=== PATIENT | female | born 1965 | race Two or more races ===

== ENCOUNTER 2021-04-08 14:48 | Emergency (ER) | payer MEDICAID, OTHER ==
[2021-04-08] MEDS ORDERED: Erythromycin Base 0.5% Ophth Oint 1 GM Tube EYEBOTH ONE (15:20)
--- NOTE | 2021-04-08 15:20 | EDM.PDOC ---
ED HPI GENERAL MEDICAL PROBLEM - General Chief Complaint: Eye Problems Stated Complaint: IRRITATED EYES Time Seen by Provider: 04/08/21 14:51 Source of Information: Reports: Patient History Limitations: Reports: No Limitations - History of Present Illness INITIAL COMMENTS - FREE TEXT/NARRATIVE: HISTORY AND PHYSICAL: History of present illness: Patient is a 55-year-old female who presents to the emergency room with complaints of bilateral eye irritation, dryness and discharge over the past several days. She states she did see her primary care provider who put her on amoxicillin and Bactrim DS for 3 days. Her symptoms have not improved. She was not given any eyedrops or ointments. She does wear glasses, no contact lenses. Patient denies any fever, chills, headache, change in vision, syncope or near syncope. Denies any chest pain, back pain, shortness of breath or cough. Denies any GI or symptoms. Review of systems: As per history of present illness and below otherwise all systems reviewed and negative. Past medical history: As per history of present illness and as reviewed below otherwise noncontributory. Surgical history: As per history of present illness and as reviewed below otherwise noncontributory. Social history: See social history for further information Family history: As per history of present illness and as reviewed below otherwise noncontributory. Physical exam: General: Well developed and well nourished. Alert and orientated x 3. Nontoxic in appearance and in no acute distress. Vital signs are stable and have been reviewed by me. Nursing notes were reviewed. HEENT: Atraumatic, normocephalic, pupils equal and reactive bilaterally, negative for conjunctival pallor or scleral icterus, scleral injection bilaterally, she has no tenderness or evidence of cellulitis periorbitally. Mucous membranes moist, TMs normal bilaterally, throat clear, neck supple, nontender, trachea midline. No drooling or trismus noted. No meningeal signs. No hot potato voice noted. Lungs: Clear to auscultation bilaterally. No wheezes, rales, or rhonchi. Chest nontender. Normal work of breathing, no accessory muscles used. Heart: S1S2, regular rate and rhythm without overt murmur, gallops, or rubs. No JVD. No peripheral edema Abdomen: Soft, nondistended, nontender. Normoactive bowel sounds. Negative for masses or costovertebral tenderness. Skin: Intact, warm, dry. No lesions or rashes noted. Hematologic: No petechiae or purpra. Mucosa appropriate color and normal nail bed color and refill. Extremities: Atraumatic, moves all extremities per self without difficulty or deficits, negative for cords or calf pain. Neurovascular unremarkable. Neuro: Awake, alert, oriented. Cranial nerves II through XII unremarkable. Cerebellum unremarkable. Motor and sensory unremarkable throughout. Exam nonfocal. Psychiatric: Mood and affect are appropriate. Normal thought process. Answering questions appropriately. Notes: *This patient was seen and evaluated during the 2019 SARS-CoV-2 novel coronavirus pandemic period. Community viral transmission is ongoing at time of this encounter and the emergency department is operating under pandemic response procedures. Eye exam shows irritation to bilateral eyes, no foreign body or abrasion noted. Visual acuity is noted here. Erythromycin ointment applied here. I have talked with the patient about today's findings, in addition to providing specific details for plan of care. She will follow up with ophthalmology. Reassessment at the time of disposition demonstrates that the patient is in no acute distress. The patient is stable for discharge, counseling was provided and we discussed in great detail signs and symptoms that would prompt them to return to the Emergency Department. Medication, follow up and supportive care measures were reviewed and discussed. Voices understanding and is agreeable to plan of care. Denies any further questions or concerns at this time. Diagnostics: Eye exam, visual acuity Therapeutics: Erythromycin ointment Prescription: Erythromycin ointment Impression: Conjunctivitis, bilateral Plan: 1. You were evaluated today on an emergent basis. Apply the ointment every 4 hours while awake in both eyes over the next week 2. You can alternate Tylenol and ibuprofen as needed for pain and fever management. 3. We encourage you to follow up with your Printing Plate [employer]ter in the next few days for re-evaluation and further care/management. 4. If your symptoms should worsen, new symptoms develop or any of the signs and symptoms we discussed should arise please return to the emergency room or call 911 (if needed). Definitive disposition and diagnosis as appropriate pending reevaluation and review of above. Treatments WO[employer]: Reports: Other (see below) Other Treatments WO[employer] FRAME [employer]DER: advil and benadryl as well and abx bilateral eyes Pain Score (Numeric/FACES): 2 - Related Data Allergies Allergy/AdvReac Type Severity Reaction Status Date / Time acetaminophen Allergy Hives Verified 04/08/21 15:05 [From Tylenol-Codeine #3] codeine Allergy Hives Verified 04/08/21 15:05 [From Tylenol-Codeine #3] Home Meds: Home Meds Phenazopyridine HCl [Pyridium] 200 mg PO TID #9 tablet 10/06/18 [Rx] Sulfamethoxazole/Trimethoprim [Bactrim Ds Tablet] 1 each PO BID #20 tablet 10/06/18 [Rx] Amoxicillin 04/08/21 [History] Erythromycin Base [Erythromycin 0.5% Ophth Oint] 1 applic OP Q4H 7 Days #1 tube 04/08/21 [Rx] Past Medical History - Past Health History Medical/Surgical History: Denies Medical/Surgical History HEENT History: Reports: Other (See Below) Other HEENT History: patient is having bilateral swelling and redness to her eyes. States she has been taking abx since thursday but her symptoms have been getting worse. Denies changes in vision. C/o burning and itching to bilateral eyes. Dermatologic History: Reports: Other (See Below) Other Dermatologic History: redness and swelling to bilateral eyelids - Infectious Disease History Infectious Disease History: Reports: Chicken Pox, Measles, Mumps - Past Surgical History HEENT Surgical History: Reports: None Dermatological Surgical History: Reports: None Social & Family History - Family History Family Medical History: No Pertinent Family History - Tobacco Use Tobacco Use Status *Q: Never Tobacco User Second Hand Smoke Exposure: No - Caffeine Use Caffeine Use: Reports: None - Recreational Drug Use Recreational Drug Use: No ED ROS GENERAL - Review of Systems Review Of Systems: Comprehensive ROS is negative, except as noted in HPI. ED EXAM GENERAL W FULL EYE - Physical Exam Exam: See Below (See dictation) Course - Vital Signs Last Recorded V/S: Last Vital Signs Temp 98.1 F 04/08/21 16:01 Pulse 82 04/08/21 16:01 Resp 18 04/08/21 16:01 BP 121/72 04/08/21 16:01 Pulse Ox 97 04/08/21 16:01 - Orders/Labs/Meds Meds: Medications Discontinued Medications Generic Name Dose Route Start Last Admin Trade Name Freq PRN Reason Stop Dose Admin Erythromycin 1 gm 04/08/21 15:20 04/08/21 15:23 Erythromycin Base 0.5% Ophth Oint 1 Gm Tube EYEBOTH 04/08/21 15:21 1 gm ONETIME ONE Administration Departure - Departure Time of Disposition: 15:43 Disposition: Home, Self-Care 01 Clinical Impression: Conjunctivitis Qualifiers: Conjunctivitis type: acute Acute conjunctivitis type: unspecified Laterality: bilateral Qualified Code(s): H10.33 - Unspecified acute conjunctivitis, bilateral - Discharge Information Prescriptions: Erythromycin Base [Erythromycin 0.5% Ophth Oint] 1 applic OP Q4H 7 Days #1 tube Instructions: Bacterial Conjunctivitis, Adult, [id number] Referrals: PCP,None [Primary Care Provider] - Forms: ED Department Discharge Additional Instructions: The following information is given to patients seen in the emergency department who are being discharged to home. This information is to outline your options for follow-up care. We provide all patients seen in our emergency department with a follow-up referral. The need for follow-up, as well as the timing and circumstances, are variable depending upon the specifics of your emergency department visit. If you don't have a primary care physician on staff, we will provide you with a referral. We always advise you to contact your personal physician following an emergency department visit to inform them of the circumstance of the visit and for follow-up with them and/or the need for any referrals to a consulting specialist. The emergency department will also refer you to a specialist when appropriate. This referral assures that you have the opportunity for follow-up care with a specialist. All of these measure are taken in an effort to provide you with optimal care, which includes your follow-up. Under all circumstances we always encourage you to contact your private physician who remains a resource for coordinating your care. When calling for follow-up care, please make the office aware that this follow-up is from your recent emergency room visit. If for any reason you are refused follow-up, please contact the [facility] Emergency Department at and asked to speak to the emergency department charge nurse. [facility] [address] [place] [id number] [address] [address] Thank you for choosing the [facility] emergency department in [place] for your medical needs today. It was a pleasure caring for you. Today you were seen in the emergency department for eye irritation 1. You were evaluated today on an emergent basis. Apply the ointment every 4 hours while awake in both eyes over the next week 2. You can alternate Tylenol and ibuprofen as needed for pain and fever management. 3. We encourage you to follow up with your Printing Plate Setter in the next few days for re-evaluation and further care/management. 4. If your symptoms should worsen, new symptoms develop or any of the signs and symptoms we discussed should arise please return to the emergency room or call 911 (if needed). Sepsis Event Note (ED) - Evaluation Sepsis Screening Result: No Definite Risk - Focused Exam Vital Signs: Vital Signs Temp Pulse Resp BP Pulse Ox 04/08/21 16:01 98.1 F 82 18 121/72 97 04/08/21 14:56 98.1 F 72 18 109/52 L 97
== END 2021-04-08 16:02 | disposition home or self-care (01) ==
LOC: MW.ED 14:48
DX: H10.33 Unspecified acute conjunctivitis, bilateral (principal); Z88.8 Allergy status to other drugs, medicaments and biological substances; Z88.5 Allergy status to narcotic agent
CPT/HCPCS: 99282; A9270

== ENCOUNTER 2021-04-09 18:58 | Emergency (ER) | payer MEDICAID ==
[2021-04-09] MEDS ORDERED: Triamcinolone Acetonide 0.1% Crm 15 GM Tube TOP ONE (19:27)
[2021-04-09] MEDS ORDERED: predniSONE 20 MG Tab PO ONE (19:28)
[2021-04-09] MEDS ORDERED: Cetirizine 10 MG Tab PO ONE (19:30)
--- NOTE | 2021-04-09 19:38 | EDM.PDOC ---
ED HPI GENERAL MEDICAL PROBLEM - General Chief Complaint: Eye Problems Stated Complaint: swollen eyes Time Seen by Provider: 04/09/21 19:08 Source of Information: Reports: Patient History Limitations: Reports: No Limitations - History of Present Illness INITIAL COMMENTS - FREE TEXT/NARRATIVE: Presents to the emergency room complaining of eyelid redness, itch, burning, swelling and pain since Thursday morning. Denies any visual symptoms, usually wears glasses, no contact lenses. She states she has not worn make-up for 2 weeks. She had the same problem 2 years ago--she sought medical attention at that time and they told her it was a reaction to make-up. On this occasion she cannot identify any triggers however she was cleaning the day before with several different cleaning agents and rubber gloves. She states the rest of her body was itchy last night to the point that she could not sleep. She does not have any other rashes however. She is otherwise healthy without any chronic medical problems and takes no medications. On Thursday she called her primary provider out in [facility] who prescribed amoxicillin and Bactrim over the phone. Her symptoms have only worsened however. Yesterday she saw provider who gave her erythromycin eye ointment which she has been spreading around her eyelids but again has made no improvement in her symptoms. eyes bilateraly Pain Score (Numeric/FACES): 10 - Related Data Allergies Allergy/AdvReac Type Severity Reaction Status Date / Time acetaminophen Allergy Hives Verified 04/09/21 19:10 [From Tylenol-Codeine #3] codeine Allergy Hives Verified 04/09/21 19:10 [From Tylenol-Codeine #3] Home Meds: Home Meds Sulfamethoxazole/Trimethoprim [Bactrim Ds Tablet] 1 each PO BID #20 tablet 10/06/18 [Rx] Amoxicillin 04/08/21 [History] Erythromycin Base [Erythromycin 0.5% Ophth Oint] 1 applic OP Q4H 7 Days #1 tube 04/08/21 [Rx] predniSONE [Prednisone] 2 tab PO DAILY #10 tablet 04/09/21 [Rx] Past Medical History - Past Health History Medical/Surgical History: Denies Medical/Surgical History HEENT History: Reports: Other (See Below) Other HEENT History: patient is having bilateral swelling and redness to her eyes. States she has been taking abx since thursday but her symptoms have been getting worse. Denies changes in vision. C/o burning and itching to bilateral eyes. Dermatologic History: Reports: Other (See Below) Other Dermatologic History: redness and swelling to bilateral eyelids - Infectious Disease History Infectious Disease History: Reports: Chicken Pox, Measles, Mumps - Past Surgical History HEENT Surgical History: Reports: None Dermatological Surgical History: Reports: None Social & Family History - Family History Family Medical History: No Pertinent Family History - Tobacco Use Tobacco Use Status *Q: Never Tobacco User - Caffeine Use Caffeine Use: Reports: Coffee - Recreational Drug Use Recreational Drug Use: No ED ROS GENERAL - Review of Systems Review Of Systems: Comprehensive ROS is negative, except as noted in HPI. ED EXAM GENERAL W FULL EYE - Physical Exam Exam: See Below Exam Limited By: No Limitations General Appearance: Alert, Mild Distress (due to symptoms) Visual Acuity (R) 20/: 70 Visual Acuity (L) 20/: 30 Eyelids: Bilateral: Edema (upper and lower), Erythema (upper and lower) Conjunctiva & Sclera: Bilateral: Normal Appearance Extraocular Movements: Bilateral: Intact Pupillary Size: Bilateral: 4 mm Pupillary Reaction: Bilateral: Brisk Ears: Normal External Exam Nose: Normal Inspection Throat/Mouth: Normal Inspection Head: Atraumatic, Normocephalic Neck: Normal Inspection Respiratory/Chest: No Respiratory Distress, Lungs Clear, Normal Breath Sounds. No: Wheezing Cardiovascular: Normal Peripheral Pulses, Regular Rate, Rhythm, No Edema Extremities: Normal Inspection Neurological: Alert, Oriented Psychiatric: Normal Affect, Normal Mood Skin Exam: Warm, Dry, Intact, Normal Color, No Rash, Other (Entire body inspected, no rash, secondary scratch trujilol on arms) Lymphatic: No Adenopathy Course - Vital Signs Last Recorded V/S: Last Vital Signs Temp 36.6 C 04/09/21 19:11 Pulse 80 04/09/21 19:11 Resp 18 04/09/21 19:11 BP 104/54 L 04/09/21 19:11 Pulse Ox 95 04/09/21 19:11 - Orders/Labs/Meds Meds: Medications Discontinued Medications Generic Name Dose Route Start Last Admin Trade Name Freq PRN Reason Stop Dose Admin Cetirizine HCl 10 mg 04/09/21 19:30 Cetirizine 10 Mg Tab PO 04/09/21 19:31 ONETIME ONE Prednisone 40 mg 04/09/21 19:28 Prednisone 20 Mg Tab PO 04/09/21 19:29 ONETIME ONE Triamcinolone Acetonide 15 gm 04/09/21 19:27 Triamcinolone Acetonide 0.1% Crm 15 Gm Tube TOP 04/09/21 19:28 ONETIME ONE Departure - Departure Time of Disposition: 19:48 Disposition: Home, Self-Care 01 Condition: Good Clinical Impression: Contact dermatitis Qualifiers: Contact dermatitis type: unspecified Contact dermatitis trigger: unspecified trigger Qualified Code(s): L25.9 - Unspecified contact dermatitis, unspecified cause - Discharge Information Referrals: PCP,None [Primary Care Provider] - [facility] [Outside] [facility] [Outside] Additional Instructions: The following information is given to patients seen in the emergency department who are being discharged to home. This information is to outline your options for follow-up care. We provide all patients seen in our emergency department with a follow-up referral. The need for follow-up, as well as the timing and circumstances, are variable depending upon the specifics of your emergency department visit. If you don't have a primary care physician on staff, we will provide you with a referral. We always advise you to contact your personal physician following an emergency department visit to inform them of the circumstance of the visit and for follow-up with them and/or the need for any referrals to a consulting specialist. The emergency department will also refer you to a specialist when appropriate. This referral assures that you have the opportunity for follow-up care with a specialist. All of these measure are taken in an effort to provide you with optimal care, which includes your follow-up. Under all circumstances we always encourage you to contact your private physician who remains a resource for coordinating your care. When calling for follow-up care, please make the office aware that this follow-up is from your recent emergency room visit. If for any reason you are refused follow-up, please contact the [facility] Emergency Department at and asked to speak to the emergency department charge nurse. [address] [address] 1. Apply triamcinolone cream twice daily to upper and lower lids taking care not to get into the eye itself.. 2. Take your prednisone once daily the next 3 to 5 days. 3. Zyrtec, Anum, Xyzal or Claritin once daily OTC 4. Follow-up at [facility]. 5. Return promptly for worsening or not improving symptoms. 6. Stop the erythromycin ointment and oral antibiotics Sepsis Event Note (ED) - Evaluation Sepsis Screening Result: No Definite Risk - Focused Exam Vital Signs: Vital Signs Temp Pulse Resp BP Pulse Ox 04/09/21 19:11 36.6 C 80 18 104/54 L 95
== END 2021-04-09 20:15 | disposition home or self-care (01) ==
LOC: MW.ED 18:58
DX: L25.9 Unspecified contact dermatitis, unspecified cause (principal); Z88.6 Allergy status to analgesic agent; Z88.5 Allergy status to narcotic agent
CPT/HCPCS: 99282; A9270